=== PATIENT | male | born 1940 | race Caucasian/White ===

== ENCOUNTER → 2016-06-13 | Outpatient (CLI) | payer BC ==
[~2016-06-13] MED LIST: ARC10 PO; CHOL100010 PO; DLCSR240 PO; GLUC10007 PO; LISI10TA PO; LORA-741 PO; MULT-190 PO; MULT-506 PO; NMN10 PO; OMEG10007 PO; TAMS0.4C59 PO
[2016-06-13 08:40] LABS: INFLUENZA A PCR Neg for Influ A (NEG); INFLUENZA B PCR Neg for Influ B (NEG)
--- NOTE | 2016-06-23 12:16 | CODING QUERY NO DIAGNOSIS ---
TREATMENT RENDERED WITHOUT A DIAGNOSIS To promote full compliance with coding requirements relating to patient care, physician participation is requested in all cases of chemical laboratory chief uncertainty. Please assist us with providing a diagnosis/symptom for the test(s) below: A diagnosis/symptom was not documented on your Order. A valid diagnosis/symptom is required to bill all insurances. Please remember that we are unable to code a diagnosis of rule out, probable, possible, questionable, or suspected. Tests that require a diagnosis: DOS: 06/13/16 * PCR INFLUENZA A OR B DIAGNOSIS: Provider Signature: Date: Thank you Aminah [facility] Once completed, please kindly fax back to [phone] For questions please call [phone]
== END | disposition home or self-care (01) ==
LOC: C.LABSPEC 03:00
PROVIDERS: ATTEND Family Medicine
DX: R68.89 Other general symptoms and signs (principal)

== ENCOUNTER 2017-05-07 07:13 | Inpatient (IN) | payer BC, OTHER ==
[~2017-05-07] VITALS: Ht 182.9 cm; Wt 82.1 kg
[~2017-05-07 07:13] MED LIST changes: -LISI10TA PO
[2017-05-07] MEDS ORDERED: PIPERACILLIN/TAZOBACTAM 4.5 GM/100ML D5W IV STA (07:17)
[2017-05-07] MEDS ORDERED: SODIUM CHLORIDE 0.9% 1000ML 1,000 ML IV STA (07:17)
--- NOTE | 2017-05-07 07:17 | EMERGENCY ROOM VISIT NOTE ---
History Report prepared by Shu: Cristobal Larsen Under the Supervision of: Dr. Baldomero Gacria M.D. First contact with patient: 07:12 Stated Complaint: UNRESPONSIVE History of Present Illness The patient is an 87 year old male who presents to the Emergency Room via EMS from [facility] due to persistent unresponsiveness that started a few days ago. Per EMS, the patient's temperature is 102 and he is in atrial fibrillation. The patient's blood sugar was 122, and his initial blood pressure was 60/30. The patient has Alzheimer's and is normally confused, as well as bed-ridden. History limited secondary to patient's unresponsiveness. Source of History: family, EMS History Limited By: other (unresponsiveness) Onset: Few days ago Position: other (global - unresponsiveness) Symptom Intensity: initial blood pressure of 60/30 Quality: other (blood sugar 122) Timing: other (persistent) Associated Symptoms: + fevers (102) Note: Associated symptoms: Patient is in atrial fibrillation. Review of Systems ROS limited secondary to patient's unresponsiveness. Past Medical & Surgical Medical Problems: (1) Altered mental status (2) ALZHEIMER'S DISEASE (3) HYPERLIPIDEMIA NEC/NOS (4) HYPERTENSION NOS (5) MALIGN NEOPL PROSTATE Old medical records were reviewed. Nurse's notes were reviewed and I agree with.. [facility] notes were reviewed Family History Unobtainable Social History Drug Use: none Housing Status: [facility] Occupation Status: retired Current/Historical Medications Scheduled Calcium Phosphate-Cholecalcife (Calcium/Vitamin D3 Gummie), 2 TAB PO DAILY Ceftriaxone Sod (Rocephin), 1 GM IV ONE Donepezil Hydrochloride (Donepezil Hcl), 23 MG PO HS Fiber (Fiber Select Gummies), 1 TAB PO DAILY Fish Oil ([place]-3), 1 CAP PO DAILY Lisinopril (Prinivil), 5 MG PO DAILY Memantine (Namenda), 10 MG PO BID Multivitamin (Multivitamin), 1 TAB PO DAILY Polyethylene Glycol 3350 (Glycolax), 17 GM PO DAILY Senna (Senokot), 2 TAB PO BID Tamsulosin Hcl (Flomax), 0.4 MG PO HS Triamcinolone Acet (Aristocort 0.1%), 1 APPLN TD BID Venlafaxine Hcl (Effexor), 75 MG PO DAILY Scheduled PRN Acetaminophen (Tylenol), 650 MG RE Q4H PRN for Fever Allergies Coded Allergies: No Known Allergies (Unverified , 05/07/17) Physical Exam Vital Signs Date Time Temp Pulse Resp B/P (MAP) Pulse Ox O2 Delivery O2 Flow Rate FiO2 05/07/17 08:38 148 26 98 05/07/17 08:33 129 27 100 05/07/17 08:30 72/58 05/07/17 08:28 134 24 100 05/07/17 08:23 136 27 99 05/07/17 08:18 128 28 99 05/07/17 08:13 143 28 100 05/07/17 08:08 128 28 99 05/07/17 08:03 124 27 99 05/07/17 08:00 84/50 05/07/17 07:58 141 29 100 05/07/17 07:53 118 32 100 05/07/17 07:48 105 31 99 05/07/17 07:47 69/49 05/07/17 07:43 155 33 99 05/07/17 07:38 130 32 99 05/07/17 07:33 106 32 100 05/07/17 07:31 68/51 05/07/17 07:28 155 14 88 05/07/17 07:23 40.1 164 32 85/48 99 Room Air 05/07/17 07:23 148 32 99 05/07/17 07:18 167 21 05/07/17 07:17 161 05/07/17 07:15 85/48 Physical Exam General: Ill-appearing older male who is unresponsive. Patient has snoring respirations. HEENT: Normal cephalic atraumatic. Pupils are equal round and reactive to light. Extraocular movements are intact. Oropharynx is pink with dry mucous membranes. No swelling of the mouth lips or tongue. Neck: Supple with a midline trachea. No meningeal signs or stiffness, no JVD or bruits. No Stridor. Chest: Clear to auscultation bilaterally. No wheezes or rhonchi. No increased work of breathing. Heart: Tachycardic and irregular with atrial fibrillation seen on monitor. Abdomen: Soft nontender, nondistended without rebound guarding or rigidity. Extremities: No cyanosis clubbing or edema. No calf tenderness or assymetry Spine/Back. Non tender to palpation. No CVA tenderness Skin: Good turgor without rashes. Neurologic exam: Unresponsive. Medical Decision & Procedures ER Provider Diagnostic Interpretation: X-ray results as stated below per interpretation by me and the radiologist: CHEST ONE VIEW PORTABLE CLINICAL HISTORY: 77 years-old Male presenting with CHEST PAIN. TECHNIQUE: Portable upright AP view of the chest was obtained. COMPARISON: 01/14/2012. FINDINGS: Atherosclerosis of the aortic arch. Cardiac silhouette normal in size. Mildly low lung volumes with hypoventilatory changes. Prominence of the left hilum likely vascular. Lungs and pleural spaces clear. Degenerative changes of the thoracic spine. Upper abdomen normal. IMPRESSION: 1. Mildly low lung volumes with hypoventilatory changes. Otherwise no acute cardiopulmonary disease. Electronically signed by: Bradley Tran M.D. 05/07/2017 7:40 AM Dictated Date/Time: 05/07/2017 7:39 AM Laboratory Results 05/07/17 07:53 Red Blood Count 4.68, Mean Corpuscular Volume 100.2, Mean Corpuscular Hemoglobin 31.2, Mean Corpuscular Hemoglobin Concent 31.1, Mean Platelet Volume 13.0, Neutrophils (%) (Auto) 80.7, Lymphocytes (%) (Auto) 6.8, Monocytes (%) ( Auto) 11.8, Eosinophils (%) (Auto) 0.0, Basophils (%) (Auto) 0.2, Neutrophils # (Auto) 8.98, Lymphocytes # (Auto) 0.76, Monocytes # (Auto) 1.31, Eosinophils # ( Auto) 0.00, Basophils # (Auto) 0.02 05/07/17 07:53 Test 05/07/17 07:27 05/07/17 07:48 05/07/17 07:53 Urine Color ORANGE Urine Appearance SLIGHTLY CLOUDY (CLEAR) Urine pH (4.5-7.5) Urine Specific [place] 1.023 (1.000-1.030) Urine Protein POS (NEG) Urine Glucose (UA) (NEG) Urine Ketones (NEG) Urine Occult Blood (NEG) Urine Nitrite (NEG) Urine Bilirubin (NEG) Urine Urobilinogen (NEG) Urine Leukocyte Esterase (NEG) Urine RBC >30 /hpf (0-4) Urine WBC >30 /hpf (0-5) Urine Epithelial Cells 5-10 /lpf (0-5) Urine Calcium Oxalate Crystals PRESENT (NONE PRSENT) Urine Bacteria 4+ (NEG) Bedside Lactic Acid Venous 5.85 mmol/L (0.90-1.70) White Blood Count 11.13 K/uL (4.8-10.8) Red Blood Count 4.68 M/uL (4.7-6.1) Hemoglobin 14.6 g/dL (14.0-18.0) Hematocrit 46.9 % (42-52) Mean Corpuscular Volume 100.2 fL (80-100) Mean Corpuscular Hemoglobin 31.2 pg (25-34) Mean Corpuscular Hemoglobin Concent 31.1 g/dl (32-36) Platelet Count 162 K/uL (130-400) Mean Platelet Volume 13.0 fL (7.4-10.4) Neutrophils (%) (Auto) 80.7 % Lymphocytes (%) (Auto) 6.8 % Monocytes (%) (Auto) 11.8 % Eosinophils (%) (Auto) 0.0 % Basophils (%) (Auto) 0.2 % Neutrophils # (Auto) 8.98 K/uL (1.4-6.5) Lymphocytes # (Auto) 0.76 K/uL (1.2-3.4) Monocytes # (Auto) 1.31 K/uL (0.11-0.59) Eosinophils # (Auto) 0.00 K/uL (0-0.5) Basophils # (Auto) 0.02 K/uL (0-0.2) RDW Standard Deviation 57.5 fL (36.4-46.3) RDW Coefficient of Variation 15.8 % (11.5-14.5) Immature Granulocyte % (Auto) 0.5 % Immature Granulocyte # (Auto) 0.06 K/uL (0.00-0.02) Nucleated RBC Absolute Count (auto) 0.06 K/uL (0-0) Nucleated Red Blood Cells % 0.5 % Toxic Vacuolation 1+ Dohle Bodies 1+ Prothrombin Time 13.1 SECONDS (9.0-12.0) Prothromb Time International Ratio 1.3 (0.9-1.1) Activated Partial Thromboplast Time 25.5 SECONDS (21.0-31.0) Partial Thromboplastin Ratio 1.0 Anion Gap 15.0 mmol/L (3-11) Est Creatinine Clear Calc Drug Dose 7.5 ml/min Estimated GFR () 5.7 Estimated GFR (Non- 4.9 BUN/Creatinine Ratio 14.7 (10-20) Calcium Level 8.5 mg/dl (8.5-10.1) Total Bilirubin 1.4 mg/dl (0.2-1) Direct Bilirubin 0.5 mg/dl (0-0.2) Aspartate Amino Transf (AST/SGOT) 93 U/L (15-37) Alanine Aminotransferase (ALT/SGPT) 32 U/L (12-78) Alkaline Phosphatase 76 U/L (45-117) Total Protein 6.9 gm/dl (6.4-8.2) Albumin 2.6 gm/dl (3.4-5.0) Lipase 59 U/L (73-393) Laboratory studies as stated above per my review. Medications Administered Medications (Trade) Dose Ordered Sig/Xavier Route Start Time Stop Time Status Last Admin Dose Admin Piperacillin Sod/ Tazobactam Sod (Zosyn Iv) 4.5 gm NOW STAT IV 05/07/17 07:17 05/07/17 07:20 DC 05/07/17 07:32 4.5 GM Sodium Chloride 1,000 ml @ 999 mls/hr Q1H1M STAT IV 05/07/17 07:17 05/07/17 08:17 DC 05/07/17 07:33 999 MLS/HR Acetaminophen (Tylenol Supp) 650 mg NOW STAT TN 05/07/17 07:22 05/07/17 07:25 DC 05/07/17 07:32 650 MG ECG Indication: other (unresponsive) Rate (beats per minute): 161 Rhythm: atrial fibrillation (with RVR) Findings: other (poor baseline, nonspecific T-wave abnormalities) Comparison ECG Date: compared to January 14 2012, rapid afib is now present ED Course 0712: Past medical records reviewed. The patient was evaluated in room B1, and a limited history and physical examination were performed. 0717: Ordered NSS 1000 ml @ 999 mls/hr IV, Zosyn IV 4.5 gm. 0722: Ordered Tylenol Supp 650 mg TN. 0726: I reevaluated the patient. 0743: I talked to the patient's daughter, Micki Smith, and the patient's . They are in [place]. They agree with the patient being DNR and wants him to mostly be comfortable. They agree with fluids and antibiotics but no aggressive measures. 0746: Upon reevaluation, the patient is resting. The patient will be evaluated for further management. 0757: Discussed the patient's case with Dr. Myles Raygoza remelter. The patient will be evaluated for further management. Medical Decision Differentials include sepsis, dehydration, altered mental status, electrolyte or metabolic abnormality. This patient comes in significantly ill. He was placed in room B1 He apparently has been sick for several days unresponsive. He has severe dementia at baseline and is a DO NOT RESUSCITATE. He was found be tachycardic and hypertensive as well as febrile and based on this is likely septic reviewing the notes from [facility] looks like it been given Rocephin shots IM. IV access has been established and he was hydrated with IV normal saline. Multiple blood testing was obtained. EKG shows a rapid A. fib which is likely compensatory. He does look very dry we did a cath urine and it was dark/tea colored and minimal amounts further showing dehydration. He was given IV Zosyn 4.5 g for broad-spectrum antibiotic coverage blood cultures were obtained his lactic acid was elevated at 5. I talked to the daughter at at length on the phone who is with the and they are out of town. They agree that he is DO NOT RESUSCITATE and want him to be comfortable. They do not want invasive measures and I discussed the plan of giving him IV fluids and antibiotics and they are in agreement with this and again mostly concerned that he is not in any pain. I told him that he is very sick and there is a possibility he may get better with the fluids and antibiotics but he may also not survive as he is very sick. They acknowledge this and agree with the plan. He will be admitted for further treatment and measures. He has significant metabolic abnormalities with the extremely high sodium and BUN and creatinine consistent with prerenal/ dehydration/sepsis. I have consulted Dr. Bueno in the [facility] team will see him. Medication Reconcilliation Current Medication List: was personally reviewed by me Blood Pressure Screening Patient's blood pressure: Low blood pressure Referred to remelter. Consults Time Called: [phone] Consulting Physician: Dr. Myles Raygoza remelter Returned Call: [phone] Discussed the patient's case with Dr. Myles Raygoza remelter. The patient will be evaluated for further management. Impression Primary Impression: Sepsis Additional Impression: Dehydration Critical Care I have personally spent greater than 30 minutes of critical care time in the direct management of this patient. This includes bedside care, interpretation of diagnostic studies, and testing, discussion with consultants, patient, and family members, and other required patient management activities. This 30 minutes is in excess of all separately billable procedures. Scribe Attestation The scribe's documentation has been prepared under my direction and personally reviewed by me in its entirety. I confirm that the note above accurately reflects all work, treatment, procedures, and medical decision making performed by me. Departure Information Dispostion Being Evaluated By Hospitalist Problem Qualifiers Primary Impression: Sepsis Sepsis type: sepsis due to unspecified organism Qualified Codes: A41.9 - Sepsis, unspecified organism
[2017-05-07] MEDS ORDERED: ACETAMINOPHEN 650 MG SUPP PR STA (07:22)
--- NOTE | 2017-05-07 07:41 | DIAGNOSTIC IMAGING REPORT ---
CHEST ONE VIEW PORTABLE CLINICAL HISTORY: 77 years-old Male presenting with CHEST PAIN. TECHNIQUE: Portable upright AP view of the chest was obtained. COMPARISON: 01/14/2012. FINDINGS: Atherosclerosis of the aortic arch. Cardiac silhouette normal in size. Mildly low lung volumes with hypoventilatory changes. Prominence of the left hilum likely vascular. Lungs and pleural spaces clear. Degenerative changes of the thoracic spine. Upper abdomen normal. IMPRESSION: 1. Mildly low lung volumes with hypoventilatory changes. Otherwise no acute cardiopulmonary disease. Electronically signed by: Bradley Tran M.D. 05/07/2017 7:40 AM Dictated Date/Time: 05/07/2017 7:39 AM
[2017-05-07 08:18] LABS: HEMATOCRIT 46.9 % (42-52); HEMOGLOBIN 14.6 g/dL (14.0-18.0); MEAN CELL VOLUME 100.2 fL (80-100); MEAN CORPUSCULAR HEMOGLOBIN 31.2 pg (25-34); MEAN CORPUSCULAR HGB CONC 31.1 g/dl (32-36); NUCLEATED RED BLOOD CELL ABS 0.06 K/uL (0-0); PLATELET COUNT 162 K/uL (130-400); RED CELL DISTRIBUTION WIDTH CV 15.8 % (11.5-14.5); RED CELL DISTRIBUTION WIDTH SD 57.5 fL (36.4-46.3); WHITE BLOOD COUNT 11.13 K/uL (4.8-10.8)
[2017-05-07] MEDS ORDERED: VENL75TA4 PO (08:21)
[2017-05-07] MEDS ORDERED: ACET650S10 RE (08:21)
[2017-05-07] MEDS ORDERED: CEFT1INJ57 IV (08:21)
[2017-05-07] MEDS ORDERED: FIBE1CHW PO (08:21)
[2017-05-07] MEDS ORDERED: SENN-61 PO (08:21)
[2017-05-07] MEDS ORDERED: CALC1CHW65 PO (08:21)
[2017-05-07] MEDS ORDERED: TAMS0.4C38 PO (08:21)
[2017-05-07] MEDS ORDERED: DONE-87 PO (08:21)
[2017-05-07] MEDS ORDERED: [UNRECOGNIZED DRUG - CODE] PO (08:21)
[2017-05-07] MEDS ORDERED: TRMCR130WC TD (08:21)
[2017-05-07 08:36] LABS: BASO % 0.2 %; BASO ABS # 0.02 K/uL (0-0.2); IG# 0.06 K/uL (0.00-0.02); LYMPH % 6.8 %; LYMPH ABS # 0.76 K/uL (1.2-3.4); MONO % 11.8 %; MONO ABS # 1.31 K/uL (0.11-0.59); NEUT % 80.7 %; NEUT ABS # 8.98 K/uL (1.4-6.5)
[2017-05-07 08:39] LABS: INR 1.3 (0.9-1.1); PTT PATIENT 25.5 SECONDS (21.0-31.0)
[2017-05-07] MEDS ORDERED: ACETAMINOPHEN 325 MG TAB PO PRN (08:45)
[2017-05-07] MEDS ORDERED: POLYETHYLENE (MIRALAX) 17 GM PACK PO PRN (08:45)
[2017-05-07] MEDS ORDERED: ONDANSETRON INJ 2 MG/ML 2 ML VIAL IV PRN (08:45)
[2017-05-07] MEDS ORDERED: CONSULT PHARMACY STA (08:53)
[2017-05-07 09:15] LABS: ALBUMIN 2.6 gm/dl (3.4-5.0); CALCIUM 8.5 mg/dl (8.5-10.1); CREATININE 9.26 mg/dl (0.60-1.40); POTASSIUM 4.2 mmol/L (3.5-5.1); TOTAL PROTEIN 6.9 gm/dl (6.4-8.2)
--- NOTE | 2017-05-07 09:15 | NUR ---
A: Pt admitted to room 229-1. Pt connected to tele and strip printed and verified. Afib RVR pre tele. Low bp and SpO2 and high RR noted as well. Minimally responsive to touch and painful stimuli. Lungs coarse with crackles in bases and occasional exp wheeze heard. Bradley patent and draining minimal amt of conc ro urine. Buttocks reddened. Call mcintyre within reach. Will continue to monitor. See emr and admission assessments.
[2017-05-07] MEDS ORDERED: CEFEPIME CONSULT ACTIVE PRN (09:30)
[2017-05-07] MEDS ORDERED: VANCOMYCIN IV 2,000 MG in SODIUM CHLORIDE 0.9% 500ML 500 ML IV SCH (09:30)
[2017-05-07] MEDS ORDERED: VANCOMYCIN CONSULT ACTIVE PRN (09:30)
[2017-05-07 09:36] VITALS: BP 49/38; PULSE 147; TEMP 37.6; O2SAT 91; Ht 182.9 cm; Wt 82.1 kg
--- NOTE | 2017-05-07 09:45 | NUR ---
A: Physician notified of critical lab values and VS. No new orders received.
[2017-05-07] MEDS ORDERED: VANCOMYCIN IV 1,500 MG in SODIUM CHLORIDE 0.9% 500ML 500 ML IV ONE (10:00)
[2017-05-07] MEDS: HEPARIN SOD 5000 UNIT/0.5 ML CARP SQ SCH ×2 (10:10→20:26)
[2017-05-07] MEDS: SODIUM CHLORIDE 0.9% 1000ML 1,000 ML IV SCH ×2 (10:15→17:26)
--- NOTE | 2017-05-07 10:22 | History and Physical ---
History & Physical Date & Time of Service: May 07, 2017 at 09:59 Chief Complaint: Altered Mental Status, Dehydration, Sepsis Primary Care Physician: Tasneem Lala D.O. History of Present Illness Source: family, clinic records, hospital records Patient was sent from [facility] for complaints of AMS, hypotension, fever , decreased urine output, and possible dehydration. The patient is completely unresponsive and thus all information was obtained from medical records. The patient was reportedly coughing and appeared SOB and was [facility] and was started on ceftriaxone for suspected pneumonia. BMP from 1 month ago was normal. CBC from 2 days ago revealed a mild leukocytosis. Per records the patient has advanced dementia secondary to Lewy Body dementia, and his recent baseline has been nonverbal, mainly in a wheelchair, and dependant for all ADLs. His PO intake had been decreasing over the last 1 week. The patient's Evelyn and daughter Micki were called this morning regarding the patients current state, they were updated on the evidence of multi -organ failure, new cardiac arrhythmia, profound hypotension, hypothermia and unresponsiveness and decided that they would prefer the patient to be kept comfortable with IV antibiotics and fluids, and no aggressive measures such as cardioversion or line insertion or pressors. They are flying from [place], [place] and will be landing in [place] at 10 PM but did state they do not want aggressive measures to prolong his life just for them to be able to see him as it would not be beneficial to the patient. They would like to be contacted with updates regardless of the outcome and are aware that the patient is likely very close to . Preferred number: [phone] Past Medical/Surgical History Medical Problems: (1) ALZHEIMER'S DISEASE Status: Chronic (2) HYPERLIPIDEMIA NEC/NOS Status: Chronic (3) HYPERTENSION NOS Status: Chronic (4) MALIGN NEOPL PROSTATE Status: Chronic Social History Smoking Status: Never Smoker Drug Use: none Marital Status: Housing status: long-term Occupational Status: retired Immunizations History of Influenza Vaccine: No History of Tetanus Vaccine?: Unknown History of Pneumococcal: Yes Pneumococcal Date: Jan 14, 2007 History of Hepatitis B Vaccine: No Multi-Drug Resistant Organisms History of MDRO: No Allergies Coded Allergies: No Known Allergies (Unverified , 05/07/17) Home Medications Scheduled Calcium Phosphate-Cholecalcife (Calcium/Vitamin D3 Gummie), 2 TAB PO DAILY Ceftriaxone Sod (Rocephin), 1 GM IV ONE Donepezil Hydrochloride (Donepezil Hcl), 23 MG PO HS Fiber (Fiber Select Gummies), 1 TAB PO DAILY Fish Oil ([place]-3), 1 CAP PO DAILY Lisinopril (Prinivil), 5 MG PO DAILY Memantine (Namenda), 10 MG PO BID Multivitamin (Multivitamin), 1 TAB PO DAILY Polyethylene Glycol 3350 (Glycolax), 17 GM PO DAILY Senna (Senokot), 2 TAB PO BID Tamsulosin Hcl (Flomax), 0.4 MG PO HS Triamcinolone Acet (Aristocort 0.1%), 1 APPLN TD BID Venlafaxine Hcl (Effexor), 75 MG PO DAILY Scheduled PRN Acetaminophen (Tylenol), 650 MG RE Q4H PRN for Fever Review of Systems Unable to obtain a ROS due to patient's mentation Physical Exam Vital Signs Date Time Temp Pulse Resp B/P (MAP) Pulse Ox O2 Delivery O2 Flow Rate FiO2 05/07/17 09:03 36.5 139 28 44/37 100 05/07/17 08:58 139 28 100 05/07/17 08:53 134 28 99 05/07/17 08:48 138 25 99 05/07/17 08:48 149 05/07/17 08:46 44/37 05/07/17 08:43 122 26 99 05/07/17 08:40 36.5 05/07/17 08:38 148 26 98 05/07/17 08:33 129 27 100 05/07/17 08:30 72/58 05/07/17 08:28 134 24 100 05/07/17 08:23 136 27 99 05/07/17 08:18 128 28 99 05/07/17 08:13 143 28 100 05/07/17 08:08 128 28 99 05/07/17 08:03 124 27 99 05/07/17 08:00 84/50 05/07/17 07:58 141 29 100 05/07/17 07:53 118 32 100 05/07/17 07:48 105 31 99 05/07/17 07:47 69/49 05/07/17 07:43 155 33 99 05/07/17 07:38 130 32 99 05/07/17 07:33 106 32 100 05/07/17 07:31 68/51 05/07/17 07:28 155 14 88 05/07/17 07:23 40.1 164 32 85/48 99 Room Air 05/07/17 07:23 148 32 99 05/07/17 07:18 167 21 05/07/17 07:17 161 05/07/17 07:15 85/48 General Appearance: no apparent distress Head: normocephalic, atraumatic Eyes: PERRL, sclerae normal (conjunctivae clear) ENT: + pharyngeal erythema, + pertinent finding (poor dental condition, mouth gaping open, oral mucosa and tongue dry) Neck: no adenopathy, no JVD, no carotid bruits, trachea midline Respiratory/Chest: chest non-tender, no respiratory distress, no accessory muscle use, + rhonchi Cardiovascular: no edema, no gallop, no JVD, no murmur, + irregularly irregular Abdomen/GI: normal bowel sounds, non tender, soft, no organomegaly, no pulsatile mass Extremities/Musculoskelatal: no calf tenderness, no pedal edema Neurologic/Psych: + pertinent finding (patient is unresponsive, does not follow commands, not responsive to aversive stimuli, not moving any extremities , nonverbal) Skin: no rash, + cyanosis, + mottled, + pertinent finding (skin dry) Diagnostics Laboratory Results Results Past 24 Hours Test 05/07/17 07:27 05/07/17 07:48 05/07/17 07:53 05/07/17 08:58 Range/Units Bedside Lactic Acid Venous 5.85 0.90-1.70 mmol/L White Blood Count 11.13 4.8-10.8 K/uL Red Blood Count 4.68 4.7-6.1 M/uL Hemoglobin 14.6 14.0-18.0 g/dL Hematocrit 46.9 42-52 % Mean Corpuscular Volume 100.2 80-100 fL Mean Corpuscular Hemoglobin 31.2 25-34 pg Mean Corpuscular Hemoglobin Concent 31.1 32-36 g/dl Platelet Count 162 130-400 K/uL Mean Platelet Volume 13.0 7.4-10.4 fL Neutrophils (%) (Auto) 80.7 % Lymphocytes (%) (Auto) 6.8 % Monocytes (%) (Auto) 11.8 % Eosinophils (%) (Auto) 0.0 % Basophils (%) (Auto) 0.2 % Neutrophils # (Auto) 8.98 1.4-6.5 K/uL Lymphocytes # (Auto) 0.76 1.2-3.4 K/uL Monocytes # (Auto) 1.31 0.11-0.59 K/uL Eosinophils # (Auto) 0.00 0-0.5 K/uL Basophils # (Auto) 0.02 0-0.2 K/uL RDW Standard Deviation 57.5 36.4-46.3 fL RDW Coefficient of Variation 15.8 11.5-14.5 % Immature Granulocyte % (Auto) 0.5 % Immature Granulocyte # (Auto) 0.06 0.00-0.02 K/uL Nucleated RBC Absolute Count (auto) 0.06 0-0 K/uL Nucleated Red Blood Cells % 0.5 % Toxic Vacuolation 1+ Dohle Bodies 1+ Prothrombin Time 13.1 9.0-12.0 SECONDS Prothromb Time International Ratio 1.3 0.9-1.1 Activated Partial Thromboplast Time 25.5 21.0-31.0 SECONDS Partial Thromboplastin Ratio 1.0 Sodium Level 173 136-145 mmol/L Potassium Level 4.2 3.5-5.1 mmol/L Chloride Level 136 98-107 mmol/L Carbon Dioxide Level 21 21-32 mmol/L Anion Gap 15.0 3-11 mmol/L Blood Urea Nitrogen 135 7-18 mg/dl Creatinine 9.26 0.60-1.40 mg/dl Est Creatinine Clear Calc Drug Dose 7.5 ml/min Estimated GFR () 5.7 Estimated GFR (Non- 4.9 BUN/Creatinine Ratio 14.7 10-20 Random Glucose 129 70-99 mg/dl Calcium Level 8.5 8.5-10.1 mg/dl Total Bilirubin 1.4 0.2-1 mg/dl Direct Bilirubin 0.5 0-0.2 mg/dl Aspartate Amino Transf (AST/SGOT) 93 15-37 U/L Alanine Aminotransferase (ALT/SGPT) 32 12-78 U/L Alkaline Phosphatase 76 45-117 U/L Total Protein 6.9 6.4-8.2 gm/dl Albumin 2.6 3.4-5.0 gm/dl Lipase 59 73-393 U/L Lactic Acid Level 4.7 0.4-2.0 mmol/L Test 05/07/17 09:26 Range/Units Bedside Glucose 156 70-99 mg/dl Microbiology Results 05/07/17 Blood Culture, Received Pending 05/07/17 Blood Culture, Received Pending 05/07/17 Urine Culture, Received Pending Impression Assessment and Plan SEVERE SEPSIS WITH SHOCK: -tachycardic, lactic acidosis, renal failure, hypotension not responsive to fluids, oliguria, AMS -spoke with patients family, no pressors/line placement, no cardioversion, DNR/ DNI, would prefer the patient to be kept comfortable only -possible source respiratory or urinary; patient was started on ceftriaxone yesterday at [facility] for possible suspected pneumonia -continue with cefepime + vanco -s/p 3 L of IV fluids in the ER, now on maintenance fluids -repeat lactic acid 4.7 ACUTE RENAL FAILURE: Oliguric -secondary to above and profound intravascular volume depletion -Cr last month was 1.2, today is 9.2 HYPERNATREMIA: -likely from dehydration/hypovolemia -had 3L NS in the ER, continue with IV fluids -repeat labs this evening, patient is comfort measures but ok to check labs and perform above treatments ALTERED MENTAL STATUS: -secondary to above -at baseline is alert and non verbal due to history of advanced lewy body dementia ACUTE ATRIAL FIBRILLATION: -no prior history of atrial fibrillation -discussed with the family and they would not want any aggressive treatment such as cardioversion -will continue with IV fluids; could consider a medication such as amiodarone Advanced Directives Existing Living Will: Yes Existing Power of Truck Trailer Final Inspector: Yes Resuscitation Status DO NOT RESUSCITATE VTE Prophylaxis VTE Risk Assessment Done? Y/N: Yes Risk Level: Moderate
[2017-05-07 12:00] VITALS: BP 50/30; PULSE 145; TEMP 37.4; O2SAT 94
--- NOTE | 2017-05-07 12:00 | NUR ---
A: Assessment complete and documented. VS showing no improvement from admission, physician aware, see emr. Afib. Lungs coarse. Call mcintyre within reach. Will continue to monitor. See emr.
[2017-05-07] MEDS ORDERED: CEFEPIME IV 2,000 MG in DEXTROSE 5% 100ML 100 ML IV SCH (14:00)
[2017-05-07] MEDS ORDERED: CEFEPIME IV 2,000 MG in SYRINGE 7.5 ML IV ONE (14:00)
--- NOTE | 2017-05-07 15:37 | Pharmacy Progress Note ---
Pharmacy Antibiotic Consult Date of Service: May 07, 2017. Pharmacy Dosing Scope Pharmacy is consulted to initiate vancomycin IV dosing therapy, order appropriate labs and adjust drug dose/frequency. Subjective The patient is a 77 year old male admitted on May 07, 2017 at 08:39. Objective Height (Feet): 6 Height (Inches): 0.00 Weight (Kilograms): 82.100 Lab Results (24hrs): Test 05/07/17 07:27 05/07/17 07:48 05/07/17 07:53 05/07/17 08:58 Urine Color ORANGE Urine Appearance SLIGHTLY CLOUDY (CLEAR) Urine pH (4.5-7.5) Urine Specific Ramsay 1.023 (1.000-1.030) Urine Protein POS (NEG) Urine Glucose (UA) (NEG) Urine Ketones (NEG) Urine Occult Blood (NEG) Urine Nitrite (NEG) Urine Bilirubin (NEG) Urine Urobilinogen (NEG) Urine Leukocyte Esterase (NEG) Urine RBC >30 /hpf (0-4) Urine WBC >30 /hpf (0-5) Urine Epithelial Cells 5-10 /lpf (0-5) Urine Calcium Oxalate Crystals PRESENT (NONE PRSENT) Urine Bacteria 4+ (NEG) Bedside Lactic Acid Venous 5.85 mmol/L (0.90-1.70) White Blood Count 11.13 K/uL (4.8-10.8) Red Blood Count 4.68 M/uL (4.7-6.1) Hemoglobin 14.6 g/dL (14.0-18.0) Hematocrit 46.9 % (42-52) Mean Corpuscular Volume 100.2 fL (80-100) Mean Corpuscular Hemoglobin 31.2 pg (25-34) Mean Corpuscular Hemoglobin Concent 31.1 g/dl (32-36) Platelet Count 162 K/uL (130-400) Mean Platelet Volume 13.0 fL (7.4-10.4) Neutrophils (%) (Auto) 80.7 % Lymphocytes (%) (Auto) 6.8 % Monocytes (%) (Auto) 11.8 % Eosinophils (%) (Auto) 0.0 % Basophils (%) (Auto) 0.2 % Neutrophils # (Auto) 8.98 K/uL (1.4-6.5) Lymphocytes # (Auto) 0.76 K/uL (1.2-3.4) Monocytes # (Auto) 1.31 K/uL (0.11-0.59) Eosinophils # (Auto) 0.00 K/uL (0-0.5) Basophils # (Auto) 0.02 K/uL (0-0.2) RDW Standard Deviation 57.5 fL (36.4-46.3) RDW Coefficient of Variation 15.8 % (11.5-14.5) Immature Granulocyte % (Auto) 0.5 % Immature Granulocyte # (Auto) 0.06 K/uL (0.00-0.02) Nucleated RBC Absolute Count (auto) 0.06 K/uL (0-0) Nucleated Red Blood Cells % 0.5 % Toxic Vacuolation 1+ Dohle Bodies 1+ Prothrombin Time 13.1 SECONDS (9.0-12.0) Prothromb Time International Ratio 1.3 (0.9-1.1) Activated Partial Thromboplast Time 25.5 SECONDS (21.0-31.0) Partial Thromboplastin Ratio 1.0 Sodium Level 173 mmol/L (136-145) Potassium Level 4.2 mmol/L (3.5-5.1) Chloride Level 136 mmol/L (98-107) Carbon Dioxide Level 21 mmol/L (21-32) Anion Gap 15.0 mmol/L (3-11) Blood Urea Nitrogen 135 mg/dl (7-18) Creatinine 9.26 mg/dl (0.60-1.40) Est Creatinine Clear Calc Drug Dose 7.5 ml/min Estimated GFR () 5.7 Estimated GFR (Non- 4.9 BUN/Creatinine Ratio 14.7 (10-20) Random Glucose 129 mg/dl (70-99) Calcium Level 8.5 mg/dl (8.5-10.1) Total Bilirubin 1.4 mg/dl (0.2-1) Direct Bilirubin 0.5 mg/dl (0-0.2) Aspartate Amino Transf (AST/SGOT) 93 U/L (15-37) Alanine Aminotransferase (ALT/SGPT) 32 U/L (12-78) Alkaline Phosphatase 76 U/L (45-117) Total Protein 6.9 gm/dl (6.4-8.2) Albumin 2.6 gm/dl (3.4-5.0) Lipase 59 U/L (73-393) Lactic Acid Level 4.7 mmol/L (0.4-2.0) Test 05/07/17 09:26 Bedside Glucose 156 mg/dl (70-99) Assessment & Plan Assessment * 77 yo M with sepsis, unknown source, and multi-system organ failure. Per provider prog note, family aware of poor prognosis and wishes no aggressive interventions at this time but OK with antibiotics. On cefepime, vancomycin. * PMH: advanced dementia (nonverbal), [facility] resident * Renal failure - SCr 9.26 mg/dL * Nasal MRSA swab negative Vancomycin * Goal trough 15-20 mcg/mL * Patient received 18 mg/kg loading dose. Will not schedule additional vancomycin for now 2nd renal failure. * Will obtain random level in AM Plan * No additional vancomycin at this time * Random level 05/08 w AM labs Pharmacy will continue to follow and will adjust dose/frequency as necessary. Thank you
[2017-05-07 15:44] VITALS: BP 50/30; PULSE 145; TEMP 37.4; O2SAT 94
--- NOTE | 2017-05-07 16:00 | NUR ---
A: Pt arrived to [place] [id number] via bed. Pt responsive to painful stimuli only. Unable to obtain BP d/t not registering. 2L via nasal cannula. NSS @ 125 ml/hr continues to infuse. Friend at bedside. Oriented to room, Agrees to ring for assistance. Will monitor.
--- NOTE | 2017-05-07 17:00 | Progress Note ---
Progress Note Post Crystalloid Evaluation Date: May 07, 2017 Time: 15:21 Subjective Patient seen with a family friend sitting at the bedside; no change in patients clinical condition. Remains unresponsive, in NAD. Minimal urine output despite over 3L positive intake. Physical Exam Vital Signs: Vital Signs Date Time Temp Pulse Resp B/P (MAP) Pulse Ox O2 Delivery O2 Flow Rate FiO2 05/07/17 15:44 37.4 145 34 94 2.0 05/07/17 12:00 Nasal Cannula 05/07/17 12:00 50/30 (37) Lungs: + rhonchi Heart: no edema, no gallop, no JVD, + JVD, + tachycardia, + extra beats, + irregularly irregular Peripheral Pulse: Bounding Capillary Refill: Delayed (2 seconds or longer) Skin: Pale Assessment & Plan Presence of: Septic Shock SEVERE SEPSIS WITH SHOCK: -tachycardic, lactic acidosis, renal failure, hypotension not responsive to fluids, oliguria, AMS -spoke with patients family, no pressors/line placement, no cardioversion, DNR/ DNI -continue with cefepime + vanco -possibly from urinary source; CXR did not reveal any obvious opacities or infiltrates although the patient was started on ceftriaxone at [facility] for possible pneumonia -s/p 3 L of IV fluids in the ER, now on maintenance fluids -repeat lactic acid 4.5 -urine output not improving -patient mainly comfort measures with conservative medical therapy only per family
[2017-05-07] MEDS ORDERED: LISI10TA PO (20:44)
[2017-05-07 23:40] VITALS: PULSE 55; TEMP 36.5; O2SAT 96
[2017-05-08] MEDS: SODIUM CHLORIDE 0.9% 1000ML 1,000 ML IV SCH (01:37)
--- NOTE | 2017-05-08 01:38 | NUR ---
ID NOTE: Patient unresponsive. NPO except medications. Turn and reposition Q2hr. IV fluids infusing as ordered. Bradley intact. No signs or symptoms of pain. Discharge plans uncertain at this time.
[2017-05-08] MEDS ORDERED: ACETAMINOPHEN IV 100 ML IV PRN (03:15)
[2017-05-08 05:45] VITALS: PULSE 79; O2SAT 92
[2017-05-08 06:08] VITALS: BP 52/38
--- NOTE | 2017-05-08 06:27 | NUR ---
A NOTE: Dr. Barrera in patient's room speaking to patient's daughter.
[2017-05-08] MEDS ORDERED: MoRPHine SULFATE 4 MG/ML 1 ML CARP\\VIAL IV PRN (06:45)
[2017-05-08] MEDS: HEPARIN SOD 5000 UNIT/0.5 ML CARP SQ SCH ×2 (08:02→19:11)
[2017-05-08] MEDS ORDERED: SCOPOLAMINE 1.5 MG TDSY TD PRN (09:00)
[2017-05-08] MEDS ORDERED: MoRPHine SULF/NSS 250MG/250ML 250 ML IV SCH (09:30)
--- NOTE | 2017-05-08 09:33 | Progress Note ---
Medicine Progress Note Date & Time of Visit: May 08, 2017 at 09:28. Subjective Patient seen with the family at the bedside. No overnight events noted. No change in mentation or clinical condition. Patient's family concerned about some labored breathing and were hoping the patient could receive a morphine drip and comfort measures only. Objective Last 8 Hrs Date Time Temp Pulse Resp B/P (MAP) Pulse Ox O2 Delivery O2 Flow Rate FiO2 05/08/17 08:00 Nasal Cannula 2.0 05/08/17 06:08 52/38 (43) 05/08/17 05:45 79 92 Nasal Cannula 2.0 Physical Exam: GENERAL: Patient is in no acute distress. HEENT: No acute trauma, normocephalic, mucous membranes dry, no nasal congestion , no scleral icterus. NECK: No stridor, no adenopathy, trachea is midline. LUNGS: Clear to auscultation bilaterally, no wheeze, no rhonchi, breath sounds equal. HEART: Without murmurs gallops or rubs, regular rate and rhythm. ABDOMEN: Soft, nontender, bowel sounds positive EXTREMITIES: No cyanosis or edema NEUROLOGIC: Comatose; only withdraws or grimaces to aversive stimuli SKIN: No rash, no jaundice, no diaphoresis. Laboratory Results: Last 24 Hours Test 05/08/17 04:56 Random Vancomycin Level 20.4 mcg/ml Date/Time Source Procedure Growth Status 05/07/17 10:10 Nasal MRSA DNA Surveillance Screen - Final Specimen Negative for MRSA by DNA Probe Complete Assessment & Plan SEVERE SEPSIS WITH SHOCK: -tachycardic, lactic acidosis, renal failure, hypotension not responsive to fluids, oliguria, AMS -spoke with patients family, no pressors/line placement, no cardioversion, DNR/ DNI, would prefer the patient to be kept comfortable only -possible source respiratory or urinary; patient was started on ceftriaxone yesterday at [facility] for possible suspected pneumonia -initially on cefepime + vanco -s/p 3 L of IV fluids in the ER, then on maintenance fluids at 125ml/hr -repeat lactic acid 4.7 -no significant changes noted with above treatment, the patients and daughter arrived to the hospital overnight and have requested comfort measures, antibiotics and IV fluids have been stopped ACUTE RENAL FAILURE: Anuric -secondary to above and profound intravascular volume depletion -Cr last month was 1.2, was 9.2 on admission HYPERNATREMIA: -likely from dehydration/hypovolemia -had 3L NS in the ER, then maintenance fluids -patient is comfort measures only now ALTERED MENTAL STATUS: -secondary to above -at baseline is alert and non verbal due to history of advanced lewy body dementia/Alzheimers ACUTE ATRIAL FIBRILLATION: -no prior history of atrial fibrillation -discussed with the family and they would not want any aggressive treatment such as cardioversion -will continue with IV fluids; could consider a medication such as amiodarone; discussed with the family who prefers the focus to be on comfort Current Inpatient Medications: Current Inpatient Medications Medications (Trade) Dose Ordered Sig/Xavier Route Start Time Stop Time Status Last Admin Dose Admin Heparin Sodium (Porcine) (Heparin Sq 5000 Unit/0.5ml) 5,000 unit Q12 SQ 05/07/17 09:00 06/06/17 08:59 05/07/17 10:10 5,000 UNIT Acetaminophen (Tylenol Tab) 650 mg Q4H PRN PO 05/07/17 08:45 06/06/17 08:44 Ondansetron HCl (Zofran Inj) 4 mg Q6H PRN IV 05/07/17 08:45 06/06/17 08:44 Polyethylene (Miralax Powder Packet) 17 gm DAILY PRN PO 05/07/17 08:45 06/06/17 08:44 Acetaminophen 100 ml @ 400 mls/hr Q8H PRN IV 05/08/17 03:15 06/07/17 03:14 05/08/17 03:27 400 MLS/HR Morphine Sulfate (MoRPHine SULFATE INJ) 3 mg Q2H PRN IV 05/08/17 06:45 05/22/17 06:44 05/08/17 07:05 3 MG Scopolamine (Transderm-Scop Patch) 1.5 mg Q72H PRN TD 05/08/17 09:00 06/07/17 08:59 Miscellaneous (Remove Transderm-Scop Patch) 1 ea Q72H N/A 05/11/17 09:00 06/10/17 08:59 Miscellaneous Information (Check Scopolamine Patch Placement) 1 ea QS N/A 05/08/17 16:00 06/07/17 15:59
[2017-05-08] MEDS ORDERED: MoRPHine SULF/NSS INJ 1 MG/ML 250 ML BTL ONE (09:57)
--- NOTE | 2017-05-08 10:35 | NUR ---
Case Management Note- Patient identified on social service screening tool as living in a halfway. Per nursing, patient is actively dying. Evaluation not appropriate at this time.
[2017-05-08] MEDS ORDERED: CEFEPIME IV 1,000 MG in SYRINGE 0 ML IV SCH (14:00)
[2017-05-08] MEDS: CHECK SCOPOLAMINE PATCH PLACEMENT SCH (16:01)
--- NOTE | 2017-05-09 | NUR ---
ID: Pt unresponsive, moans at times. Morphine gtt 1ml/hr and NSS 15ml/hr infusing. Mouth care provided. Family members at bedside. 2L NC for comfort. Pt is comfort measure only, discharge plan is not appropriate at this time. Will monitor.
[2017-05-09] MEDS: CHECK SCOPOLAMINE PATCH PLACEMENT SCH (00:10)
--- NOTE | 2017-05-09 05:27 | NUR ---
A: Pt CTB. Notified Dr. Barrera. Requested nursing to pronounce. Pt pronounced @ 0515 w/ Catalina Nowak. Apical pulse absent. No spontaneous respirations noted. Pupils fixed and dilated. at bedside. Emotional support provided.
--- NOTE | 2017-05-09 07:41 | Discharge Summary ---
Discharge Summary Date of Service May 09, 2017. Discharge Summary Admission Date: May 07, 2017 at 08:39 Discharge Disposition: Principal Diagnosis: Sepsis, UTI, atrial fibrillation, acute renal failure, hypernatremia Admission Information HPI (per Admitting provider): Patient was sent from [facility] for complaints of AMS, hypotension, fever , decreased urine output, and possible dehydration. The patient is completely unresponsive and thus all information was obtained from medical records. The patient was reportedly coughing and appeared SOB and was [facility] and was started on ceftriaxone for suspected pneumonia. BMP from 1 month ago was normal. CBC from 2 days ago revealed a mild leukocytosis. Per records the patient has advanced dementia secondary to Lewy Body dementia, and his recent baseline has been nonverbal, mainly in a wheelchair, and dependant for all ADLs. His PO intake had been decreasing over the last 1 week. The patient's Evelyn and daughter Micki were called this morning regarding the patients current state, they were updated on the evidence of multi -organ failure, new cardiac arrhythmia, profound hypotension, hypothermia and unresponsiveness and decided that they would prefer the patient to be kept comfortable with IV antibiotics and fluids, and no aggressive measures such as cardioversion or line insertion or pressors. They are flying from [place], [place] and will be landing in [email or web address] at 10 PM but did state they do not want aggressive measures to prolong his life just for them to be able to see him as it would not be beneficial to the patient. They would like to be contacted with updates regardless of the outcome and are aware that the patient is likely very close to . Preferred number: [phone] Physical Exam (per Admitting): General Appearance: no apparent distress Head: normocephalic, atraumatic Eyes: PERRL, sclerae normal (conjunctivae clear) ENT: + pharyngeal erythema, + pertinent finding (poor dental condition, mouth gaping open, oral mucosa and tongue dry) Neck: no adenopathy, no JVD, no carotid bruits, trachea midline Respiratory/Chest: chest non-tender, no respiratory distress, no accessory muscle use, + rhonchi Cardiovascular: no edema, no gallop, no JVD, no murmur, + irregularly irregular Abdomen/GI: normal bowel sounds, non tender, soft, no organomegaly, no pulsatile mass Extremities/Musculoskelatal: no calf tenderness, no pedal edema Neurologic/Psych: + pertinent finding (patient is unresponsive, does not follow commands, not responsive to aversive stimuli, not moving any extremities , nonverbal) Skin: no rash, + cyanosis, + mottled, + pertinent finding (skin dry) Hospital Course Patient overnight, pronounced by nursing staff. SEVERE SEPSIS WITH SHOCK: -tachycardic, lactic acidosis, renal failure, hypotension not responsive to fluids, oliguria, AMS -spoke with patients family, no pressors/line placement, no cardioversion, DNR/ DNI, would prefer the patient to be kept comfortable only -possible source respiratory or urinary; patient was started on ceftriaxone at [facility] for possible suspected pneumonia on 05/06/17 -initially on cefepime + vanco -s/p 3 L of IV fluids in the ER, then on maintenance fluids at 125ml/hr -repeat lactic acid 4.7 -no significant changes noted with above treatment, the patients and daughter arrived to the hospital overnight and have requested comfort measures, antibiotics and IV fluids have been stopped -morphine drip started -on scopolamine patches ACUTE RENAL FAILURE: Anuric -secondary to above and profound intravascular volume depletion -Cr last month was 1.2, was 9.2 on admission HYPERNATREMIA: -likely from dehydration/hypovolemia -had 3L NS in the ER, then maintenance fluids -patient is comfort measures only now ALTERED MENTAL STATUS: -secondary to above -at baseline is alert and non verbal due to history of advanced lewy body dementia/Alzheimers ACUTE ATRIAL FIBRILLATION: -no prior history of atrial fibrillation -discussed with the family and they would not want any aggressive treatment such as cardioversion -will continue with IV fluids; could consider a medication such as amiodarone; discussed with the family who prefers the focus to be on comfort Total time spent on discharge = 35 This includes examination of the patient, discharge planning, medication reconciliation, and communication with other providers. Discharge Instructions none
== END 2017-05-09 05:15 | disposition expired | DRG 871 ==
LOC: EDBD 07:13 → C.EDB 07:14 → C.2T 08:39 → ENRESERV 08:54 → C.MS4W 15:53
PROVIDERS: ADMIT Internal Medicine; ATTEND Internal Medicine
DX: A41.9 Sepsis, unspecified organism (principal); R65.21 Severe sepsis with septic shock; N17.9 Acute kidney failure, unspecified; E87.0 Hyperosmolality and hypernatremia; N39.0 Urinary tract infection, site not specified; G30.9 Alzheimer's disease, unspecified; F02.80 Dementia in other diseases classified elsewhere, unspecified severity, without behavioral disturbance, psychotic disturbance, mood disturbance, and anxiety; E78.5 Hyperlipidemia, unspecified; I10 Essential (primary) hypertension; E86.0 Dehydration; I48.91 Unspecified atrial fibrillation; Z79.899 Other long term (current) drug therapy; Z66 Do not resuscitate